=== PATIENT | female | born 1985 | race Caucasian/White ===

== ENCOUNTER 2017-07-01 20:39 | Emergency (ER) | payer OTHER ==
[~2017-07-01] VITALS: Ht 152.4 cm; Wt 70.3 kg
[2017-07-01] MEDS ORDERED: IBUPROFEN 600600 M1 PO (21:06)
[2017-07-01] MEDS ORDERED: PENICILLIN V P500 MG PO (21:06)
== END 2017-07-01 21:20 | disposition home or self-care (01) ==
LOC: ER 20:39
DX: K05.10 Chronic gingivitis, plaque induced (principal)